=== PATIENT | male | born 1965 | race Caucasian/White ===

== ENCOUNTER 2019-08-15 12:24 | Inpatient (IN) | payer OTHER ==
[2019-08-15 14:19] VITALS: BMI 23.1
--- NOTE | 2019-08-15 18:00 | HP ---
CIWA Score Nausea/Vomitin Muscle Tremors: 2 Anxiety: 4-Mod. Anxious/Guarded Agitation: 4-Moderately Restless Paroxysmal Sweats: 2 Orientation: 0-Oriented Tacttile Disturbances: 0-None Auditory Disturbances: 0-None Visual Disturbances: 0-None Headache: 0-None Present CIWA-Ar Total Score: 14 - Admission Criteria OASAS Guidelines: Admission for Medically Managed Detox: Requires at least one of the followin. CIWA greater than 12 2. Seizures within the past 24 hours 3. Delirium tremens within the past 24 hours 4. Hallucinations within the past 24 hours 5. Acute intervention needed for co occurring medical disorder 6. Acute intervention needed for co occurring psychiatric disorder 7. Severe withdrawal that cannot be handled at a lower level of care (continued vomiting, continued diarrhea, abnormal vital signs) requiring intravenous medication and/or fluids 8. Admission ROS S - HPI Allergies/Adverse Reactions: Allergies Allergy/AdvReac Type Severity Reaction Status Date / Time No Known Allergies Allergy Verified 08/15/19 14:06 History of Present Illness: pt here requesting detox from etoh use , reports 2 pints/day , 12-18 beers/ day , starts drinking in the morning , latest use today , started 17 mo ago 2/ 2 family issues. heroin : relapsed 17 mo ago, latest use 1 week ago , was started on Suboxone yesterday . denies IV use currently used IV in the 1979's and [id number] cocaine : 1 gr q 2 days denies iv use cannabis : 1/8 every 3 days tobacco : 1 ppd pmhx :DM , denies Hep C / HIV shx : unemployed, lives alone , denies legal issues This report was requested by: Debi Quarles | Reference #: [id number] Others' Prescriptions Patient Name: Neil Hankins Date: 1965 Address: [address] [place] [address] Sex: Male Rx Written Rx Dispensed Drug Quantity Days Supply Prescriber Name 08/14/2019 08/14/2019 buprenorphine-naloxone 8-2 mg sl film 24 8 Lexii Choi (PODIATRY PROFESSOR) 07/24/2019 07/24/2019 zolpidem tartrate 10 mg tablet 28 28 Salop , Shanyq, G 07/24/2019 07/24/2019 clonazepam 1 mg tablet 28 28 Salop, Shanyq , G 06/25/2019 06/25/2019 zolpidem tartrate 10 mg tablet 28 28 RadhaKevon (PODIATRY PROFESSOR) 06/25/2019 06/25/2019 clonazepam 1 mg tablet 28 28 [facility] Kevon Rodriguez (PODIATRY PROFESSOR) 04/23/2019 04/23/2019 [facility]pid[facility] tartrate 10 [facility] tablet [facility] 04/23/2019 04/23/2019 [facility] 1 mg tablet [facility] 02/11/2019 02/19/2019 zolpidem tartrate 10 mg tablet 28 28 Sascha Martinez MD 02/11/2019 02/11/2019 clonazepam 1 mg tablet 28 28 Sascha Martinez MD 01/16/2019 01/20/2019 zolpidem tartrate 10 mg tablet 30 30 RadhaKevon (PODIATRY PROFESSOR) 01/16/2019 01/17/2019 clonazepam 0.5 mg tablet 28 [facility] 12/20/2018 12/20/2018 zolpidem tartrate 10 mg tablet 30 30 TigenovahidKevon (PODIATRY PROFESSOR) 11/21/2018 11/21/2018 zolpidem tartrate 10 mg tablet 30 30 Sascha Martinez MD 10/22/2018 10/22/2018 zolpidem tartrate 10 mg tablet 30 30 Sascha Martinez MD 09/19/2018 09/19/2018 zolpidem tartrate 10 mg tablet 30 30 Sascha Martinez MD Patient Name: Neil Hankins Jr Date: 1965 Address: [address] [place] [address] Sex: Male Rx Written Rx Dispensed Drug Quantity Days Supply Prescriber Name 03/28/2019 03/28/2019 oxycodone-acetaminophen 5-325 mg tab 56 7 Leobardo Villa 02/20/2019 02/20/2019 oxycodone-acetaminophen 5-325 mg tab 56 8 Leobardo Villa 02/06/2019 02/06/2019 oxycodone-acetaminophen 5-325 mg tab 21 7 Leobardo Villa 12/04/2018 12/04/2018 oxycodone-acetaminophen 10-325 mg tab 45 15 Leobardo Villa 11/13/2018 11/13/2018 oxycodone-acetaminophen 10-325 mg tab 45 15 Leobardo Villa 11/06/2018 11/06/2018 oxycodone-acetaminophen 5-325 mg tab 21 7 Leobardo Villa 09/18/2018 09/18/2018 oxycodone-acetaminophen 10-325 mg tab 45 15 Leobardo Villa 09/04/2018 09/04/2018 oxycodone-acetaminophen 10-325 mg tab 21 7 Leobardo Villa Exam Limitations: Clinical Condition - Ebola screening Have you traveled outside of the country in the last 21 days: No (N) Have you had contact with anyone from an Ebola affected area: No Do you have a fever: No - Review of Systems Constitutional: See HPI, Loss of Appetite EENT: reports: Other (reading glasses) Respiratory: reports: No Symptoms reported Cardiac: reports: No Symptoms Reported GI: reports: See HPI, Constipated, Nausea, Poor Appetite : reports: No Symptoms Reported Musculoskeletal: reports: Back Pain (chronic - used to have rx for Perocet " it was for my SSI "), Joint Pain (jenifer knees , feet chronic pain) Integumentary: reports: No Symptoms Reported Neuro: reports: Numbness (DM neuropathy), Unsteady Gait (using cane) Endocrine: reports: See HPI Psychiatric: reports: Orientated x3, Agitated, Anxious Patient History - Smoking Cessation Smoking history: Current every day smoker Have you smoked in the past 12 months: Yes Hx Chewing Tobacco Use: No Initiated information on smoking cessation: Yes 'Breaking Loose' booklet given: 08/15/19 - Substances abused Heroin Substance route: Inhalation Frequency: Daily Amount used: 2BUNDLES Age of first use: 20 Date of last use: 08/08/19 Crack Substance route: Smoking Frequency: Daily Amount used: 2BUNDLES Age of first use: 22 Date of last use: 08/14/19 Alcohol Substance route: Oral Frequency: Daily Amount used: BEERS- 12PCK/ BACARDY- 1L Age of first use: 10 Date of last use: 08/15/19 Admission Physical Exam BHS - Vital Signs Vital Signs: Vital Signs - 24 hr 08/15/19 14:11 Temperature 97.9 F Pulse Rate 123 H Respiratory 20 Rate Blood Pressure 163/96 - Physical General Appearance: Yes: Mild Distress, Anxious HEENTM: Yes: EOMI, Hearing grossly Normal, Normocephalic, Normal Voice Respiratory: Yes: Chest Non-Tender, Lungs Clear, Normal Breath Sounds, No Respiratory Distress, No Accessory Muscle Use Neck: Yes: No masses,lesions,Nodules, Trachea in good position Cardiology: Yes: Regular Rhythm, Regular Rate, S1, S2, Tachycardia Abdominal: Yes: Non Tender, Soft Musculoskeletal: Yes: Back pain Extremities: Yes: Normal Range of Motion, Non-Tender, Tremors Neurological: Yes: Fully Oriented, Alert, Motor Strength 5/5 Integumentary: Yes: Warm, Track Mendez - Diagnostic (1) Opioid dependence on agonist therapy Current Visit: Yes Status: Acute (2) Alcohol use disorder Current Visit: Yes Status: Chronic (3) Nicotine dependence Current Visit: Yes Status: Chronic Qualifiers: Nicotine product type: cigarettes (4) Cocaine use Current Visit: Yes Status: Chronic (5) Cannabis use disorder, mild, abuse Current Visit: Yes Status: Chronic Breathalyzer - Breathalyzer Breathalyzer: 0 Urine Drug Screen - Test Device Lot number: [id number] Expiration date: 04/06/21 - Control Is test valid?: Yes - Results Drug screen NEGATIVE: No Urine drug screen results: THC-Marijuana, KAN-Cocaine, BUP-Suboxone Inpatient Rehab Admission - Rehab Decision to Admit Inpatient rehab admission?: No
[2019-08-15] MEDS ORDERED: IBUPROFEN 400 MG TABLET (FP) PO PRN (18:09)
[2019-08-15] MEDS ORDERED: MAG HYDROX/AL HYDROX/SIMETH 30 ML UNIT-DOSE CUP PO PRN (18:09)
[2019-08-15] MEDS ORDERED: ACETAMINOPHEN 325 MG TABLET (FP) PO PRN ×2 (18:09)
[2019-08-15] MEDS ORDERED: BISMUTH SUBSALICYLATE 524 MG/30 ML UD PO PRN (18:09)
[2019-08-15] MEDS ORDERED: hydrOXYzine PAMOATE 25 MG CAPSULE (FP) PO PRN (18:09)
[2019-08-15] MEDS ORDERED: METHOCARBAMOL 500 MG TABLET PO PRN (18:09)
[2019-08-15] MEDS ORDERED: MENTHOL/PHENOL 1 EACH UD MM PRN (18:09)
[2019-08-15] MEDS ORDERED: MAGNESIUM CITRATE 300 ML BOTTLE PO PRN (18:09)
[2019-08-15] MEDS ORDERED: MAGNESIUM HYDROX 2400MG/30ML ORAL SUSPENSION 30 ML CUP PO PRN (18:09)
[2019-08-15] MEDS ORDERED: chlordiazePOXIDE HCL 25 MG CAPSULE PO PRN (18:10)
[2019-08-15] MEDS ORDERED: chlordiazePOXIDE HCL 25 MG CAPSULE PO ONE (19:05)
[2019-08-15] MEDS ORDERED: BUPRENORPHINE/NALOXONE 8 MG/2 MG FILM PACKET SL ONE (19:11)
[2019-08-15] MEDS: INSULIN SLIDING SCALE (NOVOLOG) 1 VIAL SQ SCH ×2 (19:31→22:14)
[2019-08-15] MEDS: ASPIRIN 81 MG CHEWABLE TABLETS PO SCH (19:31)
[2019-08-15] MEDS: metFORMIN HCL 500 MG TABLET (FP) PO SCH (19:31)
[2019-08-15] MEDS: chlordiazePOXIDE HCL 25 MG CAPSULE PO SCH (22:14)
[2019-08-15] MEDS: THIAMINE HCL 100 MG TABLET (FP) PO SCH (22:14)
[2019-08-15] MEDS: ATORVASTATIN CA 80 MG TABLET (FP) PO SCH (22:14)
[2019-08-15] MEDS: INSULIN (LEVEMIR) 100 UNITS/ML UNITS SQ SCH (22:17)
[2019-08-16] MEDS: chlordiazePOXIDE HCL 25 MG CAPSULE PO SCH ×4 (05:45→22:28)
[2019-08-16] MEDS: INSULIN SLIDING SCALE (NOVOLOG) 1 VIAL SQ SCH ×4 (06:49→22:49)
[2019-08-16] MEDS: glipiZIDE-XL 5 MG TAB.ER.24 PO SCH (07:06)
[2019-08-16] MEDS: metFORMIN HCL 500 MG TABLET (FP) PO SCH (07:06)
[2019-08-16 10:57] LABS: ALBUMIN 3.6 g/dl (3.4-5.0); BILIRUBIN,TOTAL 0.4 mg/dL (0.2-1); BLOOD UREA NITROGEN 19.4 mg/dL (7-18); CREATININE 0.8 mg/dL (0.55-1.3); POTASSIUM 3.8 mmol/L (3.5-5.1); TOT PROT 6.9 g/dl (6.4-8.2)
[2019-08-16] MEDS: ASPIRIN 81 MG CHEWABLE TABLETS PO SCH (10:58)
[2019-08-16] MEDS: PRENATAL VITAMINS W/ FOLIC ACID TABLET (FP) PO SCH (10:58)
[2019-08-16] MEDS: BUPRENORPHINE/NALOXONE 8 MG/2 MG FILM PACKET SL SCH (10:59)
[2019-08-16 11:12] LABS: HEMATOCRIT 40.9 % (35.4-49); HEMOGLOBIN 13.7 GM/dL (11.7-16.9); MCH 30.4 pg (25.7-33.7); MCHC 33.6 g/dl (32.0-35.9); MEAN CELL VOLUME 90.4 fl (80-96); MEAN PLT VOLUME 8.3 fl (7.5-11.1); PLATELET COUNT 185 K/MM3 (134-434); RBC 4.52 M/mm3 (4.00-5.60); RDW 13.6 % (11.9-15.9); WHITE BLOOD COUNT 9.6 K/mm3 (4.0-10.0)
--- NOTE | 2019-08-16 11:43 | CONSULT ---
[facility] Psychiatric Consult - Data Date of interview: 08/16/19 Admission source: [facility] Identifying data: First admission to [facility] for this 54 y/o male self-referred for detoxification (TON issues : alcohol, cannabis, nicotine, cocaine). Interviewed at [address] [place] [address]. Patient is , father of one, domiciled , unemployed and supported on SSI benefits. Substance Abuse History: Discussed with the patient. Details in current [facility] report as follows : Smoking history: Current every day smoker. Have you smoked in the past 12 months: Yes. Hx Chewing Tobacco Use: No. Initiated information on smoking cessation: Yes. 'Breaking Loose' booklet given: 08/15/19. - Substances abused. Heroin. Substance route: Inhalation. Frequency: Daily. Amount used: 2BUNDLES. Age of first use: 20. Date of last use: 08/08/19. * * Crack. Substance route: Smoking. Frequency: Daily. Amount used: 2BUNDLES. Age of first use: 22. Date of last use: 08/14/19. Alcohol. Substance route : Oral. Frequency: Daily. Amount used: BEERS- 12PCK/ BACARDY- 1L. Age of first use: 10. Date of last use: 08/15/19 Medical History: Medical profile is consistent with diabetes mellitus, hypercholesterolemia, chronic lumbar pain and history of surgeries (right inguinal herniorraphy + left wrist surgery). Psychiatric History: Patient denies history of psychiatric hospitalizations. He indicates that he has been diagnosed with " bipolar disorder and schizophrenia ". Mr Hankins sees a psychiatrist at [facility] in the [place] for his OPD care. Medicated with prozac + zolpidem + aripriprazole. Currently on suboxone maintenance. No reported history of suicide attempts. Physical/Sexual Abuse/Trauma History: None reported. Additional Comment: Urine drug screen results: THC-Marijuana, AKN-Cocaine, BUP- Suboxone. Noted. Mental Status Exam - Mental Status Exam Alert and Oriented to: Time, Place, Person Cognitive Function: Good Patient Appearance: Well Groomed Mood: Hopeful Affect: Appropriate, Normal Range Patient Behavior: Fatigued, Appropriate, Cooperative Speech Pattern: Clear, Appropriate Thought Process: Intact, Goal Oriented Thought Disorder: Not Present Hallucinations: Denies Suicidal Ideation: Denies Homicidal Ideation: Denies Insight/Judgement: Poor Sleep: Poorly, Difficulty falling asleep Appetite: Good Muscle strength/Tone: Normal Gait/Station: Normal Psychiatric Findings - Problem List ([place] 1, 2,3) (1) Alcohol use disorder Current Visit: Yes Status: Chronic (2) Opioid dependence on agonist therapy Current Visit: Yes Status: Chronic (3) Cannabis use disorder, mild, abuse Current Visit: Yes Status: Chronic (4) Cocaine use Current Visit: Yes Status: Chronic (5) Nicotine dependence Current Visit: Yes Status: Chronic Qualifiers: Nicotine product type: cigarettes (6) Substance induced mood disorder Current Visit: Yes Status: Chronic (7) History of schizoaffective disorder Current Visit: Yes Status: Chronic (8) Insomnia Current Visit: Yes Status: Chronic - Initial Treatment Plan Initial Treatment Plan: Psychoeducation. Sleep hygiene. Detoxification. AA/NA meetings. MAT services discussed in this session. Groups. Medications resumed as : prozac 10 mg po daily + abilify 5 mg po daily. Insomnia is addressed with melatonin at bedtime. Side effects/benefits of each formulation are discussed with patient. Gave verbal consent to this plan of care. Observation.
[2019-08-16] MEDS: FLUoxetine HCL 10 MG TABLET PO SCH (13:09)
[2019-08-16] MEDS: ARIPiprazole 5 MG TABLET (FP) PO SCH (13:10)
--- NOTE | 2019-08-16 13:36 | PN ---
S CIWA - CIWA Score Nausea/Vomitin-No Nausea/No Vomiting Muscle Tremors: 2 Anxiety: 3 Agitation: 0-Normal Activity Paroxysmal Sweats: 3 Orientation: 0-Oriented Tacttile Disturbances: 0-None Auditory Disturbances: 0-None Visual Disturbances: 0-None Headache: 1-Very Mild CIWA-Ar Total Score: 9 S Progress Note (SOAP) Subjective: c/o headache, anxiety, and sweats. Objective: 08/16/19 13:35 Vital Signs 08/16/19 08/16/19 08/16/19 06:16 09:38 11:07 Temperature 97 F L 96.5 F L Pulse Rate 76 76 85 Respiratory 18 18 Rate Blood Pressure 93/60 95/55 L 112/64 08/16/19 13:19 Temperature 97.2 F L Pulse Rate 83 Respiratory 18 Rate Blood Pressure 102/62 Lab Results WBC 9.6 K/mm3 (4.0-10.0) 08/16/19 07:50 RBC 4.52 M/mm3 (4.00-5.60) 08/16/19 07:50 Hgb 13.7 GM/dL (11.7-16.9) 08/16/19 07:50 Hct 40.9 % (35.4-49) 08/16/19 07:50 MCV 90.4 fl (80-96) 08/16/19 07:50 MCHC 33.6 g/dl (32.0-35.9) 08/16/19 07:50 RDW 13.6 % (11.9-15.9) 08/16/19 07:50 Plt Count 185 K/MM3 (134-434) 08/16/19 07:50 Sodium 142 mmol/L (136-145) 08/16/19 07:50 Potassium 3.8 mmol/L (3.5-5.1) 08/16/19 07:50 Chloride 102 mmol/L (98-107) 08/16/19 07:50 Carbon Dioxide 34 mmol/L (21-32) H 08/16/19 07:50 Anion Gap 6 MMOL/L (8-16) L 08/16/19 07:50 BUN 19.4 mg/dL (7-18) H 08/16/19 07:50 Creatinine 0.8 mg/dL (0.55-1.3) 08/16/19 07:50 Random Glucose 139 mg/dL (74-106) H 08/16/19 07:50 Calcium 9.0 mg/dL (8.5-10.1) 08/16/19 07:50 Labs noted. Assessment: 08/16/19 13:35 AOX3, in no acute respiratory distress. Full rom, ambulating in the unit. Withdrawal symptoms. Plan: continue detox.
[2019-08-16] MEDS: THIAMINE HCL 100 MG TABLET (FP) PO SCH (22:28)
[2019-08-16] MEDS: ATORVASTATIN CA 80 MG TABLET (FP) PO SCH (22:28)
[2019-08-16] MEDS: MELATONIN 5 MG TABLETS PO PRN (22:29)
[2019-08-16] MEDS: INSULIN (LEVEMIR) 100 UNITS/ML UNITS SQ SCH (22:49)
[2019-08-17] MEDS: chlordiazePOXIDE HCL 25 MG CAPSULE PO SCH ×4 (05:16→22:14)
[2019-08-17] MEDS: metFORMIN HCL 500 MG TABLET (FP) PO SCH (06:33)
[2019-08-17] MEDS: glipiZIDE-XL 5 MG TAB.ER.24 PO SCH (06:34)
[2019-08-17] MEDS: INSULIN SLIDING SCALE (NOVOLOG) 1 VIAL SQ SCH ×4 (06:34→22:16)
[2019-08-17] MEDS: BUPRENORPHINE/NALOXONE 8 MG/2 MG FILM PACKET SL SCH (10:20)
[2019-08-17] MEDS: ASPIRIN 81 MG CHEWABLE TABLETS PO SCH (10:20)
[2019-08-17] MEDS: PRENATAL VITAMINS W/ FOLIC ACID TABLET (FP) PO SCH (10:20)
[2019-08-17] MEDS: FLUoxetine HCL 10 MG TABLET PO SCH (10:21)
[2019-08-17] MEDS: ARIPiprazole 5 MG TABLET (FP) PO SCH (10:21)
--- NOTE | 2019-08-17 14:08 | PN ---
S CIWA - CIWA Score Nausea/Vomitin-No Nausea/No Vomiting Muscle Tremors: 2 Anxiety: 2 Agitation: 2 Paroxysmal Sweats: No Perspiration Orientation: 0-Oriented Tacttile Disturbances: 0-None Auditory Disturbances: 0-None Visual Disturbances: 0-None Headache: 0-None Present CIWA-Ar Total Score: 6 BHS Progress Note (SOAP) Subjective: 54 years old male admitted on 08/15/19 for alcohol withdrawal sx management treated with librium detox regimen taking suboxone 8-2mg po tid last filled 8 days 08/14/19 begin suboxone 8-2mg po daily patient may return to suboxone provider Objective: 08/17/19 14:06 Vital Signs Temperature 99.0 F 08/17/19 13:12 Pulse Rate 73 08/17/19 13:12 Respiratory Rate 18 08/17/19 13:12 Blood Pressure 93/60 08/17/19 13:12 O2 Sat by Pulse Oximetry (%) Laboratory Last Values WBC 9.6 K/mm3 (4.0-10.0) 08/16/19 07:50 RBC 4.52 M/mm3 (4.00-5.60) 08/16/19 07:50 Hgb 13.7 GM/dL (11.7-16.9) 08/16/19 07:50 Hct 40.9 % (35.4-49) 08/16/19 07:50 MCV 90.4 fl (80-96) 08/16/19 07:50 MCH 30.4 pg (25.7-33.7) 08/16/19 07:50 MCHC 33.6 g/dl (32.0-35.9) 08/16/19 07:50 RDW 13.6 % (11.9-15.9) 08/16/19 07:50 Plt Count 185 K/MM3 (134-434) 08/16/19 07:50 MPV 8.3 fl (7.5-11.1) 08/16/19 07:50 Sodium 142 mmol/L (136-145) 08/16/19 07:50 Potassium 3.8 mmol/L (3.5-5.1) 08/16/19 07:50 Chloride 102 mmol/L (98-107) 08/16/19 07:50 Carbon Dioxide 34 mmol/L (21-32) H 08/16/19 07:50 Anion Gap 6 MMOL/L (8-16) L 08/16/19 07:50 BUN 19.4 mg/dL (7-18) H 08/16/19 07:50 Creatinine 0.8 mg/dL (0.55-1.3) 08/16/19 07:50 Est GFR (CKD-EPI)AfAm 115.74 08/16/19 07:50 Est GFR (CKD-EPI)NonAf 99.86 08/16/19 07:50 POC Glucometer 126 UNITS (80-120) 08/17/19 12:01 Random Glucose 139 mg/dL (74-106) H 08/16/19 07:50 Calcium 9.0 mg/dL (8.5-10.1) 08/16/19 07:50 Total Bilirubin 0.4 mg/dL (0.2-1) 08/16/19 07:50 AST 14 U/L (15-37) L 08/16/19 07:50 ALT 14 U/L (13-61) 08/16/19 07:50 Alkaline Phosphatase 72 U/L (45-117) 08/16/19 07:50 Total Protein 6.9 g/dl (6.4-8.2) 08/16/19 07:50 Albumin 3.6 g/dl (3.4-5.0) 08/16/19 07:50 RPR Titer Nonreactive (NONREACTIVE) 08/16/19 07:50 lab noted fasting glucose Assessment: 08/17/19 14:07 alcohol withdrawal sx Plan: continue librium detox regimen
[2019-08-17] MEDS: THIAMINE HCL 100 MG TABLET (FP) PO SCH (22:14)
[2019-08-17] MEDS: ATORVASTATIN CA 80 MG TABLET (FP) PO SCH (22:14)
[2019-08-17] MEDS: INSULIN (LEVEMIR) 100 UNITS/ML UNITS SQ SCH (22:17)
[2019-08-18] MEDS ORDERED: chlordiazePOXIDE HCL 10 MG CAPSULE PO PRN
[2019-08-18] MEDS: chlordiazePOXIDE HCL 10 MG CAPSULE PO SCH ×4 (05:35→22:29)
[2019-08-18] MEDS: metFORMIN HCL 500 MG TABLET (FP) PO SCH (06:30)
[2019-08-18] MEDS: glipiZIDE-XL 5 MG TAB.ER.24 PO SCH (06:30)
[2019-08-18] MEDS: INSULIN SLIDING SCALE (NOVOLOG) 1 VIAL SQ SCH ×4 (06:31→22:27)
[2019-08-18] MEDS: PRENATAL VITAMINS W/ FOLIC ACID TABLET (FP) PO SCH (10:11)
[2019-08-18] MEDS: ASPIRIN 81 MG CHEWABLE TABLETS PO SCH (10:11)
[2019-08-18] MEDS: BUPRENORPHINE/NALOXONE 8 MG/2 MG FILM PACKET SL SCH (10:11)
[2019-08-18] MEDS: ARIPiprazole 5 MG TABLET (FP) PO SCH (10:15)
[2019-08-18] MEDS: FLUoxetine HCL 10 MG TABLET PO SCH (10:15)
--- NOTE | 2019-08-18 13:09 | PN ---
[facility] Progress Note Note: Psychiatry Attending's note (follow-up) : Patient seen. Reason : auditory hallucinations. Reported by Counselor Yoshi Tomlinson. Mr Hankins is examined by copywriter. " I don't hear voices. This happened a long time ago." Patient states that he is interested in rehabilitation at [facility]. Feels fine. Adherent to medications. Benign hospital course. Unremarkable mental status.
--- NOTE | 2019-08-18 14:35 | PN ---
[facility] CIWA - CIWA Score Nausea/Vomitin-No Nausea/No Vomiting Muscle Tremors: 1-None Visible, but [place] Anxiety: 1-Mildly Anxious Agitation: 1-Slight > Activity Paroxysmal Sweats: No Perspiration Orientation: 0-Oriented Tacttile Disturbances: 0-None Auditory Disturbances: 0-None Visual Disturbances: 0-None Headache: 0-None Present CIWA-Ar Total Score: 3 S Progress Note (SOAP) Subjective: 54 years old male admitted on 08/15/19 for alcohol withdrawal sx management treated with librium detox regimen patient tolerated librium well ate breakfast ambulating on hallway encourage the patient to attend group and meeting Objective: 08/18/19 14:36 Laboratory Last Values WBC 9.6 K/mm3 (4.0-10.0) 08/16/19 07:50 RBC 4.52 M/mm3 (4.00-5.60) 08/16/19 07:50 Hgb 13.7 GM/dL (11.7-16.9) 08/16/19 07:50 Hct 40.9 % (35.4-49) 08/16/19 07:50 MCV 90.4 fl (80-96) 08/16/19 07:50 MCH 30.4 pg (25.7-33.7) 08/16/19 07:50 MCHC 33.6 g/dl (32.0-35.9) 08/16/19 07:50 RDW 13.6 % (11.9-15.9) 08/16/19 07:50 Plt Count 185 K/MM3 (134-434) 08/16/19 07:50 MPV 8.3 fl (7.5-11.1) 08/16/19 07:50 Sodium 142 mmol/L (136-145) 08/16/19 07:50 Potassium 3.8 mmol/L (3.5-5.1) 08/16/19 07:50 Chloride 102 mmol/L (98-107) 08/16/19 07:50 Carbon Dioxide 34 mmol/L (21-32) H 08/16/19 07:50 Anion Gap 6 MMOL/L (8-16) L 08/16/19 07:50 BUN 19.4 mg/dL (7-18) H 08/16/19 07:50 Creatinine 0.8 mg/dL (0.55-1.3) 08/16/19 07:50 Est GFR (CKD-EPI)AfAm 115.74 08/16/19 07:50 Est GFR (CKD-EPI)NonAf 99.86 08/16/19 07:50 POC Glucometer 156 UNITS (80-120) 08/18/19 11:56 Random Glucose 139 mg/dL (74-106) H 08/16/19 07:50 Fasting Glucose 149 mg/dL (74-106) H 08/18/19 07:50 Calcium 9.0 mg/dL (8.5-10.1) 08/16/19 07:50 Total Bilirubin 0.4 mg/dL (0.2-1) 08/16/19 07:50 AST 14 U/L (15-37) L 08/16/19 07:50 ALT 14 U/L (13-61) 08/16/19 07:50 Alkaline Phosphatase 72 U/L (45-117) 08/16/19 07:50 Total Protein 6.9 g/dl (6.4-8.2) 08/16/19 07:50 Albumin 3.6 g/dl (3.4-5.0) 08/16/19 07:50 RPR Titer Nonreactive (NONREACTIVE) 08/16/19 07:50 lab noted Assessment: 08/18/19 14:37 alcohol withdrawal sx Plan: continue librium detox regimen
[2019-08-18] MEDS: INSULIN (LEVEMIR) 100 UNITS/ML UNITS SQ SCH (22:27)
[2019-08-18] MEDS: ATORVASTATIN CA 80 MG TABLET (FP) PO SCH (22:29)
[2019-08-18] MEDS: THIAMINE HCL 100 MG TABLET (FP) PO SCH (22:29)
[2019-08-19] MEDS: chlordiazePOXIDE HCL 10 MG CAPSULE PO SCH ×2 (05:17→17:28)
[2019-08-19] MEDS: metFORMIN HCL 500 MG TABLET (FP) PO SCH (06:04)
[2019-08-19] MEDS: glipiZIDE-XL 5 MG TAB.ER.24 PO SCH (06:05)
[2019-08-19] MEDS: INSULIN SLIDING SCALE (NOVOLOG) 1 VIAL SQ SCH ×4 (06:14→22:16)
[2019-08-19] MEDS: ARIPiprazole 5 MG TABLET (FP) PO SCH (10:03)
[2019-08-19] MEDS: PRENATAL VITAMINS W/ FOLIC ACID TABLET (FP) PO SCH (10:03)
[2019-08-19] MEDS: BUPRENORPHINE/NALOXONE 8 MG/2 MG FILM PACKET SL SCH (10:03)
[2019-08-19] MEDS: FLUoxetine HCL 10 MG TABLET PO SCH (10:04)
[2019-08-19] MEDS: ASPIRIN 81 MG CHEWABLE TABLETS PO SCH (10:05)
--- NOTE | 2019-08-19 12:38 | PN ---
[facility] CIWA - CIWA Score Nausea/Vomitin-No Nausea/No Vomiting Muscle Tremors: None Anxiety: 1-Mildly Anxious Agitation: 0-Normal Activity Paroxysmal Sweats: No Perspiration Orientation: 0-Oriented Tacttile Disturbances: 0-None Auditory Disturbances: 0-None Visual Disturbances: 0-None Headache: 0-None Present CIWA-Ar Total Score: 1 S Progress Note (SOAP) Subjective: 54 years old male admitted on 08/15/19 for alcohol withdrawal sx management treated with librium detox regimen c/o chronic back pain treated with bengay at home bengay ordered Objective: 08/19/19 12:37 Vital Signs Temperature 98 F 08/19/19 09:03 Pulse Rate 81 08/19/19 09:03 Respiratory Rate 18 08/19/19 09:03 Blood Pressure 117/79 08/19/19 09:03 O2 Sat by Pulse Oximetry (%) Laboratory Last Values WBC 9.6 K/mm3 (4.0-10.0) 08/16/19 07:50 RBC 4.52 M/mm3 (4.00-5.60) 08/16/19 07:50 Hgb 13.7 GM/dL (11.7-16.9) 08/16/19 07:50 Hct 40.9 % (35.4-49) 08/16/19 07:50 MCV 90.4 fl (80-96) 08/16/19 07:50 MCH 30.4 pg (25.7-33.7) 08/16/19 07:50 MCHC 33.6 g/dl (32.0-35.9) 08/16/19 07:50 RDW 13.6 % (11.9-15.9) 08/16/19 07:50 Plt Count 185 K/MM3 (134-434) 08/16/19 07:50 MPV 8.3 fl (7.5-11.1) 08/16/19 07:50 Sodium 142 mmol/L (136-145) 08/16/19 07:50 Potassium 3.8 mmol/L (3.5-5.1) 08/16/19 07:50 Chloride 102 mmol/L (98-107) 08/16/19 07:50 Carbon Dioxide 34 mmol/L (21-32) H 08/16/19 07:50 Anion Gap 6 MMOL/L (8-16) L 08/16/19 07:50 BUN 19.4 mg/dL (7-18) H 08/16/19 07:50 Creatinine 0.8 mg/dL (0.55-1.3) 08/16/19 07:50 Est GFR (CKD-EPI)AfAm 115.74 08/16/19 07:50 Est GFR (CKD-EPI)NonAf 99.86 08/16/19 07:50 POC Glucometer 146 UNITS (80-120) 08/19/19 11:51 Random Glucose 139 mg/dL (74-106) H 08/16/19 07:50 Fasting Glucose 149 mg/dL (74-106) H 08/18/19 07:50 Calcium 9.0 mg/dL (8.5-10.1) 08/16/19 07:50 Total Bilirubin 0.4 mg/dL (0.2-1) 08/16/19 07:50 AST 14 U/L (15-37) L 08/16/19 07:50 ALT 14 U/L (13-61) 08/16/19 07:50 Alkaline Phosphatase 72 U/L (45-117) 08/16/19 07:50 Total Protein 6.9 g/dl (6.4-8.2) 08/16/19 07:50 Albumin 3.6 g/dl (3.4-5.0) 08/16/19 07:50 RPR Titer Nonreactive (NONREACTIVE) 08/16/19 07:50 lab noted Assessment: 08/19/19 12:38 alcohol withdrawal sx management Plan: continue librium detox regimen
[2019-08-19] MEDS: METHYL SALICYLATE/MENTHOL OINT 30 GM TUBE TP SCH ×2 (14:06→22:16)
[2019-08-19] MEDS: THIAMINE HCL 100 MG TABLET (FP) PO SCH (21:37)
[2019-08-19] MEDS: INSULIN (LEVEMIR) 100 UNITS/ML UNITS SQ SCH (21:37)
[2019-08-19] MEDS: MELATONIN 5 MG TABLETS PO PRN (21:37)
[2019-08-19] MEDS: ATORVASTATIN CA 80 MG TABLET (FP) PO SCH (21:37)
[2019-08-20] MEDS ORDERED: chlordiazePOXIDE HCL 10 MG CAPSULE PO ONE (05:00)
[2019-08-20] MEDS: metFORMIN HCL 500 MG TABLET (FP) PO SCH (06:16)
[2019-08-20] MEDS: INSULIN SLIDING SCALE (NOVOLOG) 1 VIAL SQ SCH ×2 (06:16→12:10)
[2019-08-20] MEDS: glipiZIDE-XL 5 MG TAB.ER.24 PO SCH (06:16)
[2019-08-20] MEDS: ASPIRIN 81 MG CHEWABLE TABLETS PO SCH (10:10)
[2019-08-20] MEDS: PRENATAL VITAMINS W/ FOLIC ACID TABLET (FP) PO SCH (10:10)
[2019-08-20] MEDS: METHYL SALICYLATE/MENTHOL OINT 30 GM TUBE TP SCH (10:10)
[2019-08-20] MEDS: BUPRENORPHINE/NALOXONE 8 MG/2 MG FILM PACKET SL SCH (10:11)
[2019-08-20] MEDS: ARIPiprazole 5 MG TABLET (FP) PO SCH (10:11)
[2019-08-20] MEDS: FLUoxetine HCL 10 MG TABLET PO SCH (10:12)
--- NOTE | 2019-08-20 13:14 | DS ---
[facility] Detox Discharge Summary Admission Date: 08/15/19 Discharge Date: 08/20/19 - History Present History: Alcohol Dependence Additional Comments: 54 years old male admitted on 08/15/19 for alcohol withdrawal sx management treated with librium detox regimen patient is alert oriented x 3 respiratory clear lung bilaterally on auscultation abdomen soft no rebound tenderness skin warm and dry - Physical Exam Results Vital Signs: Vital Signs Temperature 97.0 F L 08/20/19 09:10 Pulse Rate 83 08/20/19 09:10 Respiratory Rate 16 08/20/19 09:10 Blood Pressure 111/73 08/20/19 09:10 O2 Sat by Pulse Oximetry (%) Pertinent Admission Physical Exam Findings: alcohol withdrawal sx Laboratory Last Values WBC 9.6 K/mm3 (4.0-10.0) 08/16/19 07:50 RBC 4.52 M/mm3 (4.00-5.60) 08/16/19 07:50 Hgb 13.7 GM/dL (11.7-16.9) 08/16/19 07:50 Hct 40.9 % (35.4-49) 08/16/19 07:50 MCV 90.4 fl (80-96) 08/16/19 07:50 MCH 30.4 pg (25.7-33.7) 08/16/19 07:50 MCHC 33.6 g/dl (32.0-35.9) 08/16/19 07:50 RDW 13.6 % (11.9-15.9) 08/16/19 07:50 Plt Count 185 K/MM3 (134-434) 08/16/19 07:50 MPV 8.3 fl (7.5-11.1) 08/16/19 07:50 Sodium 142 mmol/L (136-145) 08/16/19 07:50 Potassium 3.8 mmol/L (3.5-5.1) 08/16/19 07:50 Chloride 102 mmol/L (98-107) 08/16/19 07:50 Carbon Dioxide 34 mmol/L (21-32) H 08/16/19 07:50 Anion Gap 6 MMOL/L (8-16) L 08/16/19 07:50 BUN 19.4 mg/dL (7-18) H 08/16/19 07:50 Creatinine 0.8 mg/dL (0.55-1.3) 08/16/19 07:50 Est GFR (CKD-EPI)AfAm 115.74 08/16/19 07:50 Est GFR (CKD-EPI)NonAf 99.86 08/16/19 07:50 POC Glucometer 146 UNITS (80-120) 08/20/19 11:59 Random Glucose 139 mg/dL (74-106) H 08/16/19 07:50 Fasting Glucose 149 mg/dL (74-106) H 08/18/19 07:50 Calcium 9.0 mg/dL (8.5-10.1) 08/16/19 07:50 Total Bilirubin 0.4 mg/dL (0.2-1) 08/16/19 07:50 AST 14 U/L (15-37) L 08/16/19 07:50 ALT 14 U/L (13-61) 08/16/19 07:50 Alkaline Phosphatase 72 U/L (45-117) 08/16/19 07:50 Total Protein 6.9 g/dl (6.4-8.2) 08/16/19 07:50 Albumin 3.6 g/dl (3.4-5.0) 08/16/19 07:50 RPR Titer Nonreactive (NONREACTIVE) 08/16/19 07:50 lab noted long history of diabetes - Treatment Hospital Course: Detox Protocol Followed, Detoxed Safely, Responded well, Discharged Condition Good, Rehab Referral Accepted Patient has Accepted [facility] - Medication Discharge Medications: Ambulatory Orders Aripiprazole [Abilify -] 5 mg PO DAILY 08/15/19 Aspirin [ASA -] 81 mg PO DAILY 08/15/19 Atorvastatin Ca [Lipitor] 80 mg PO HS 08/15/19 Buprenorphine/Naloxone [Suboxone 8Mg/2Mg Sl Film -] 1 each SL TID 08/15/19 Fluoxetine HCl [Prozac -] 10 mg PO DAILY 08/15/19 Gabapentin [Neurontin -] 100 mg PO BID 08/15/19 Glipizide [Glipizide ER] 5 mg PO DAILY 08/15/19 Insulin Glargine,Hum.rec.anlog [Basaglar Kwikpen U-100] 40 unit SQ DAILY Insulin NPH [Novolin N Vial -] 20 units SQ TID 08/15/19 Metformin HCl [Glucophage] 1,000 mg PO DAILY 08/15/19 Aripiprazole [Abilify -] 5 mg PO DAILY #30 tablet 08/18/19 Fluoxetine HCl [Prozac -] 10 mg PO DAILY #30 capsule 08/18/19 - Diagnosis (1) Alcohol use disorder Current Visit: Yes Status: Acute (2) Nicotine dependence Current Visit: Yes Status: Acute Qualifiers: Nicotine product type: cigarettes Substance use status: in withdrawal Qualified Code(s): F17.213 - Nicotine dependence, cigarettes, with withdrawal (3) Substance induced mood disorder Current Visit: Yes Status: Suspected - AMA Did Patient Leave Against Medical Advice: No CIWA Score - CIWA Score Nausea/Vomitin-No Nausea/No Vomiting Muscle Tremors: None Anxiety: 0-No Anxiety, at Ease Agitation: 0-Normal Activity Paroxysmal Sweats: No Perspiration Orientation: 0-Oriented Tacttile Disturbances: 0-None Auditory Disturbances: 0-None Visual Disturbances: 0-None Headache: 0-None Present CIWA-Ar Total Score: 0
[2019-08-20 13:48] VITALS: BP 105/72; PULSE 88; TEMP 97.1
== END 2019-08-20 14:50 | disposition other institution (70) | DRG 773 ==
LOC: EDBD → YASAS 12:24 → Y3N 18:57
PROVIDERS: ADMIT Allergy & Immunology; ATTEND Allergy & Immunology
PROC: HZ2ZZZZ Detoxification Services for Substance Abuse Treatment (ICD-10-PCS; principal; 2019-08-15)
DX: F10.230 Alcohol dependence with withdrawal, uncomplicated (principal); F11.20 Opioid dependence, uncomplicated; F12.10 Cannabis abuse, uncomplicated; F14.90 Cocaine use, unspecified, uncomplicated; F17.213 Nicotine dependence, cigarettes, with withdrawal; F19.24 Other psychoactive substance dependence with psychoactive substance-induced mood disorder; E11.9 Type 2 diabetes mellitus without complications; E78.00 Pure hypercholesterolemia, unspecified; M54.5 Low back pain; G89.29 Other chronic pain; G47.00 Insomnia, unspecified; R00.0 Tachycardia, unspecified; Z79.4 Long term (current) use of insulin; Z79.84 Long term (current) use of oral hypoglycemic drugs
CPT/HCPCS: 36415; 80053; 82947; 82962; 85027; 86593

== ENCOUNTER 2019-08-20 15:10 | Inpatient (IN) | payer OTHER ==
--- NOTE | 2019-08-20 13:26 | HP ---
[facility] Rehab Assess/Revision - Admission History Admitted to Rehab from: [facility] Date of Admission to Rehab: 08/20/19 - Findings Detox History & Physical reviewed: Yes Concur with findings: Yes Comments/Additional Findings: transferred from detox to rehab admission as per protocol Inpatient Rehab Admission - Rehab Decision to Admit Inpatient rehab admission?: Yes - Initial Determination Are CD services needed?: Yes Free of communicable disease: Yes Not in need of hospitalization: Yes - Rehab Admission Criteria Previous failed treatment: Yes Poor recovery environment: Yes Comorbidities: Yes Lacks judgement: Yes Patient is meeting Inpatient Rehab admission criteria:: Yes
[~2019-08-20 15:10] MED LIST: ACETAMINOPHEN 325 MG TABLET (FP) PO PRN; LOPERAMIDE HCL 2 MG CAPSULE PO PRN; MAG HYDROX/AL HYDROX/SIMETH 30 ML UNIT-DOSE CUP PO PRN; MAGNESIUM CITRATE 300 ML BOTTLE PO PRN; MAGNESIUM HYDROX 2400MG/30ML ORAL SUSPENSION 30 ML CUP PO PRN; MENTHOL/PHENOL 1 EACH UD MM PRN; P-EPHED 60MG/TRIPROLIDI 2.5MG TABLET PO PRN; guaiFENesin 200 MG/10 ML 10 ML UNIT-DOSE CUPS PO PRN
[2019-08-20] MEDS: INSULIN SLIDING SCALE (NOVOLOG) 1 VIAL SQ SCH ×2 (17:02→21:25)
[2019-08-20] MEDS: ATORVASTATIN CA 80 MG TABLET (FP) PO SCH (21:23)
[2019-08-20] MEDS: MELATONIN 5 MG TABLETS PO PRN (21:24)
[2019-08-20] MEDS: THIAMINE HCL 100 MG TABLET (FP) PO SCH (21:24)
[2019-08-20] MEDS: INSULIN (LEVEMIR) 100 UNITS/ML UNITS SQ SCH (21:25)
[2019-08-21] MEDS: INSULIN SLIDING SCALE (NOVOLOG) 1 VIAL SQ SCH ×2 (07:26→10:35)
[2019-08-21] MEDS: glipiZIDE-XL 5 MG TAB.ER.24 PO SCH (07:26)
[2019-08-21] MEDS: metFORMIN HCL 500 MG TABLET (FP) PO SCH (07:26)
[2019-08-21] MEDS: PRENATAL VITAMINS W/ FOLIC ACID TABLET (FP) PO SCH (10:18)
[2019-08-21] MEDS: ARIPiprazole 5 MG TABLET (FP) PO SCH (10:18)
[2019-08-21] MEDS: ASPIRIN 81 MG CHEWABLE TABLETS PO SCH (10:19)
[2019-08-21] MEDS: BUPRENORPHINE/NALOXONE 8 MG/2 MG FILM PACKET SL SCH (10:19)
[2019-08-21] MEDS: FLUoxetine HCL 10 MG CAPSULE (FP) PO SCH (10:19)
[2019-08-21] MEDS: INSULIN (LEVEMIR) 100 UNITS/ML UNITS SQ SCH (21:16)
[2019-08-21] MEDS: ATORVASTATIN CA 80 MG TABLET (FP) PO SCH (21:17)
[2019-08-21] MEDS: MELATONIN 5 MG TABLETS PO PRN (21:17)
[2019-08-21] MEDS: THIAMINE HCL 100 MG TABLET (FP) PO SCH (21:17)
[2019-08-22] MEDS: INSULIN SLIDING SCALE (NOVOLOG) 1 VIAL SQ SCH (06:39)
[2019-08-22] MEDS: glipiZIDE-XL 5 MG TAB.ER.24 PO SCH (07:30)
[2019-08-22] MEDS: metFORMIN HCL 500 MG TABLET (FP) PO SCH (07:30)
[2019-08-22] MEDS: FLUoxetine HCL 10 MG CAPSULE (FP) PO SCH (09:44)
[2019-08-22] MEDS: ASPIRIN 81 MG CHEWABLE TABLETS PO SCH (09:44)
[2019-08-22] MEDS: ARIPiprazole 5 MG TABLET (FP) PO SCH (09:44)
[2019-08-22] MEDS: PRENATAL VITAMINS W/ FOLIC ACID TABLET (FP) PO SCH (09:45)
[2019-08-22] MEDS: BUPRENORPHINE/NALOXONE 8 MG/2 MG FILM PACKET SL SCH (09:47)
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
[2019-08-22] MEDS ORDERED: hydrOXYzine PAMOATE 50 MG CAPSULE (FP) PO PRN (14:09)
[2019-08-22] MEDS: THIAMINE HCL 100 MG TABLET (FP) PO SCH (21:18)
[2019-08-22] MEDS: ATORVASTATIN CA 80 MG TABLET (FP) PO SCH (21:19)
[2019-08-22] MEDS: INSULIN (LEVEMIR) 100 UNITS/ML UNITS SQ SCH (21:21)
[2019-08-22] MEDS ORDERED: SUVOREXANT 10 MG TABLET PO PRN (22:00)
[2019-08-22] MEDS: METHYL SALICYLATE/MENTHOL OINT 30 GM TUBE TP SCH (22:24)
[2019-08-23] MEDS ORDERED: INSULIN (NOVOLOG) ASPART 100 UNITS/ML 10ML VIAL ONE (04:01)
[2019-08-23] MEDS ORDERED: PT OWN MED DRAWER 7, Y5N ONE ×2 (04:01→08:32)
[2019-08-23] MEDS: INSULIN SLIDING SCALE (NOVOLOG) 1 VIAL SQ SCH (06:44)
[2019-08-23] MEDS: metFORMIN HCL 500 MG TABLET (FP) PO SCH (06:44)
[2019-08-23] MEDS: glipiZIDE-XL 5 MG TAB.ER.24 PO SCH (06:44)
[2019-08-23] MEDS: ARIPiprazole 5 MG TABLET (FP) PO SCH (09:36)
[2019-08-23] MEDS: METHYL SALICYLATE/MENTHOL OINT 30 GM TUBE TP SCH ×2 (09:37→21:22)
[2019-08-23] MEDS: ASPIRIN 81 MG CHEWABLE TABLETS PO SCH (09:37)
[2019-08-23] MEDS: PRENATAL VITAMINS W/ FOLIC ACID TABLET (FP) PO SCH (09:37)
[2019-08-23] MEDS: BUPRENORPHINE/NALOXONE 8 MG/2 MG FILM PACKET SL SCH (09:37)
[2019-08-23] MEDS: FLUoxetine HCL 10 MG CAPSULE (FP) PO SCH (09:37)
[2019-08-23] MEDS: THIAMINE HCL 100 MG TABLET (FP) PO SCH (21:21)
[2019-08-23] MEDS: ATORVASTATIN CA 80 MG TABLET (FP) PO SCH (21:21)
[2019-08-23] MEDS: INSULIN (LEVEMIR) 100 UNITS/ML UNITS SQ SCH (21:24)
[2019-08-23] MEDS ORDERED: INSULIN (LEVEMIR) 100 UNITS/ML UNITS SQ ONE (21:55)
[2019-08-24] MEDS: INSULIN SLIDING SCALE (NOVOLOG) 1 VIAL SQ SCH (06:33)
[2019-08-24] MEDS: glipiZIDE-XL 5 MG TAB.ER.24 PO SCH (06:34)
[2019-08-24] MEDS: metFORMIN HCL 500 MG TABLET (FP) PO SCH (06:34)
[2019-08-24] MEDS: ASPIRIN 81 MG CHEWABLE TABLETS PO SCH (10:24)
[2019-08-24] MEDS: PRENATAL VITAMINS W/ FOLIC ACID TABLET (FP) PO SCH (10:24)
[2019-08-24] MEDS: ARIPiprazole 5 MG TABLET (FP) PO SCH (10:24)
[2019-08-24] MEDS: METHYL SALICYLATE/MENTHOL OINT 30 GM TUBE TP SCH ×2 (10:24→21:00)
[2019-08-24] MEDS: FLUoxetine HCL 10 MG CAPSULE (FP) PO SCH (10:24)
[2019-08-24] MEDS: BUPRENORPHINE/NALOXONE 8 MG/2 MG FILM PACKET SL SCH (10:24)
[2019-08-24] MEDS: ATORVASTATIN CA 80 MG TABLET (FP) PO SCH (21:00)
[2019-08-24] MEDS: INSULIN (LEVEMIR) 100 UNITS/ML UNITS SQ SCH (21:00)
[2019-08-24] MEDS: THIAMINE HCL 100 MG TABLET (FP) PO SCH (21:00)
[2019-08-25] MEDS: metFORMIN HCL 500 MG TABLET (FP) PO SCH (06:23)
[2019-08-25] MEDS: INSULIN SLIDING SCALE (NOVOLOG) 1 VIAL SQ SCH (06:23)
[2019-08-25] MEDS: glipiZIDE-XL 5 MG TAB.ER.24 PO SCH (06:23)
[2019-08-25] MEDS: ASPIRIN 81 MG CHEWABLE TABLETS PO SCH (09:48)
[2019-08-25] MEDS: BUPRENORPHINE/NALOXONE 8 MG/2 MG FILM PACKET SL SCH (09:48)
[2019-08-25] MEDS: PRENATAL VITAMINS W/ FOLIC ACID TABLET (FP) PO SCH (09:48)
[2019-08-25] MEDS: FLUoxetine HCL 10 MG CAPSULE (FP) PO SCH (09:48)
[2019-08-25] MEDS: ARIPiprazole 5 MG TABLET (FP) PO SCH (09:48)
[2019-08-25] MEDS: METHYL SALICYLATE/MENTHOL OINT 30 GM TUBE TP SCH ×2 (09:49→22:11)
[2019-08-25] MEDS: THIAMINE HCL 100 MG TABLET (FP) PO SCH (21:30)
[2019-08-25] MEDS: ATORVASTATIN CA 80 MG TABLET (FP) PO SCH (21:30)
[2019-08-25] MEDS: INSULIN (LEVEMIR) 100 UNITS/ML UNITS SQ SCH (21:34)
[2019-08-25] MEDS ORDERED: SUVOREXANT 10 MG TABLET PO PRN (22:00)
[2019-08-26] MEDS: glipiZIDE-XL 5 MG TAB.ER.24 PO SCH (06:15)
[2019-08-26] MEDS: metFORMIN HCL 500 MG TABLET (FP) PO SCH (06:15)
[2019-08-26] MEDS: INSULIN SLIDING SCALE (NOVOLOG) 1 VIAL SQ SCH (06:16)
--- NOTE | 2019-08-26 08:44 | DS ---
[facility] Rehab Discharge Summary - [facility] Rehab Discharge Summary Admission Date: 08/20/19 Discharge Date: 08/27/19 - History Present History: Alcohol dependence, Cocaine dependence Pertinent Past History: History of Present Illness: etoh use 2 pints/day , 12-18 beers/day , starts drinking in the morning, started 17 mo ago 2/2 family issues. heroin : relapsed 17 mo ago, started on Suboxone yesterday; denies IV use, but used IV in the and cocaine : 1 gr q 2 days denies iv use cannabis : 1/8 every 3 days tobacco : 1 ppd pmhx :DM , denies Hep C / HIV shx : unemployed, lives alone , denies legal issues - Discharge Physical Exam Vital Signs: Vital Signs Temperature 97.4 F L 08/26/19 07:07 Pulse Rate 82 08/26/19 07:07 Respiratory Rate 18 08/26/19 07:07 Blood Pressure 110/61 08/26/19 07:07 O2 Sat by Pulse Oximetry (%) Pertinent Admission Physical Exam Findings: - Physical General Appearance: No apparent distress HEENTM: Normocephalic, Respiratory: Lungs Clear, Neck: supple, Trachea in good position Cardiology: S1, S2, Abdominal: +BSNon Tender, Soft MSK: Full weight bearing, full ROM, steady gait. Neurological: CN 2-12 intact, Motor Strength 5/5 - Treatment Discharge Condition: Outpatient referral accepted (Patient will go to [facility]. Medically stable for discharge.) Hospital Course: Patient attended groups, had 1:1 meetings with his counselor, was adherent to his treatment plan and his medication regimen. - Medication Discharge Medications: Ambulatory Orders Aspirin [ASA -] 81 mg PO DAILY 08/15/19 Atorvastatin Ca [Lipitor] 80 mg PO HS 08/15/19 Buprenorphine/Naloxone [Suboxone 8Mg/2Mg Sl Film -] 1 each SL TID 08/15/19 Fluoxetine HCl [Prozac -] 10 mg PO DAILY 08/15/19 Gabapentin [Neurontin -] 100 mg PO BID 08/15/19 Glipizide [Glipizide ER] 5 mg PO DAILY 08/15/19 Insulin Glargine,Hum.rec.anlog [Basaglar Kwikpen U-100] 40 unit SQ DAILY Insulin NPH [Novolin N Vial -] 20 units SQ TID 08/15/19 Metformin HCl [Glucophage] 1,000 mg PO DAILY 08/15/19 Aripiprazole [Abilify -] 5 mg PO DAILY #30 tablet 08/18/19 Aripiprazole [Abilify -] 5 mg PO DAILY #30 tablet 08/26/19 Fluoxetine HCl [Prozac -] 10 mg PO DAILY #30 capsule 08/26/19 - Discharge Instructions Diet, activity, other medical instructions: Diet: as tolerated Activity: as tolerated Other medical instructions: Please follow up with aftercare referral and make an appointment with your PCP within 2 weeks. - Diagnosis (1) Alcohol dependence Current Visit: Yes Status: Acute (2) Cocaine dependence Current Visit: Yes Status: Acute (3) Cannabis use disorder, mild, abuse Current Visit: No Status: Chronic - Follow-up Referral Minutes to complete discharge: 20 - AMA Did Patient Leave Against Medical Advice: No
[2019-08-26] MEDS: FLUoxetine HCL 10 MG CAPSULE (FP) PO SCH (09:40)
[2019-08-26] MEDS: ASPIRIN 81 MG CHEWABLE TABLETS PO SCH (09:40)
[2019-08-26] MEDS: PRENATAL VITAMINS W/ FOLIC ACID TABLET (FP) PO SCH (09:40)
[2019-08-26] MEDS: ARIPiprazole 5 MG TABLET (FP) PO SCH (09:40)
[2019-08-26] MEDS: BUPRENORPHINE/NALOXONE 8 MG/2 MG FILM PACKET SL SCH (09:40)
[2019-08-26] MEDS: METHYL SALICYLATE/MENTHOL OINT 30 GM TUBE TP SCH ×2 (09:41→21:17)
--- NOTE | 2019-08-26 12:14 | PN ---
[facility] Progress Note Note: Patient is scheduled for discharge tomorrow. Scripts for 30 days supply of medications(Abilify 5 mg/day, Prozac 10 mg/day) will be electronically transmitted to [facility] at [address] [place] [address]
[2019-08-26] MEDS: INSULIN (LEVEMIR) 100 UNITS/ML UNITS SQ SCH (21:16)
[2019-08-26] MEDS: THIAMINE HCL 100 MG TABLET (FP) PO SCH (21:16)
[2019-08-26] MEDS: ATORVASTATIN CA 80 MG TABLET (FP) PO SCH (21:17)
[2019-08-27] MEDS ORDERED: INSULIN (NOVOLOG) ASPART 100 UNITS/ML 10ML VIAL ONE (06:23)
[2019-08-27 06:47] VITALS: BP 109/65; PULSE 73; TEMP 98.1
[2019-08-27] MEDS: metFORMIN HCL 500 MG TABLET (FP) PO SCH (06:47)
[2019-08-27] MEDS: glipiZIDE-XL 5 MG TAB.ER.24 PO SCH (06:47)
[2019-08-27] MEDS: INSULIN SLIDING SCALE (NOVOLOG) 1 VIAL SQ SCH (06:47)
[2019-08-27] MEDS: PRENATAL VITAMINS W/ FOLIC ACID TABLET (FP) PO SCH (09:03)
[2019-08-27] MEDS: ARIPiprazole 5 MG TABLET (FP) PO SCH (09:03)
[2019-08-27] MEDS: METHYL SALICYLATE/MENTHOL OINT 30 GM TUBE TP SCH (09:03)
[2019-08-27] MEDS: ASPIRIN 81 MG CHEWABLE TABLETS PO SCH (09:03)
[2019-08-27] MEDS: FLUoxetine HCL 10 MG CAPSULE (FP) PO SCH (09:03)
[2019-08-27] MEDS: BUPRENORPHINE/NALOXONE 8 MG/2 MG FILM PACKET SL SCH (09:04)
== END 2019-08-27 09:40 | disposition home or self-care (01) | DRG 772 ==
LOC: YASAS 15:10 → Y3W 15:11
PROVIDERS: ADMIT Neuromusculoskeletal Medicine & OMM; ATTEND Neuromusculoskeletal Medicine & OMM
PROC: HZ42ZZZ Group Counseling for Substance Abuse Treatment, Cognitive-Behavioral (ICD-10-PCS; principal; 2019-08-20)
DX: F10.20 Alcohol dependence, uncomplicated (principal); F11.20 Opioid dependence, uncomplicated; F14.20 Cocaine dependence, uncomplicated; F12.10 Cannabis abuse, uncomplicated; F17.210 Nicotine dependence, cigarettes, uncomplicated; F25.9 Schizoaffective disorder, unspecified; F19.280 Other psychoactive substance dependence with psychoactive substance-induced anxiety disorder; F19.282 Other psychoactive substance dependence with psychoactive substance-induced sleep disorder; Z62.810 Personal history of physical and sexual abuse in childhood; Z79.84 Long term (current) use of oral hypoglycemic drugs
CPT/HCPCS: 71045-TC-FY; 82962

== ENCOUNTER 2022-05-08 09:44 | Inpatient (IN) | payer OTHER ==
[2022-05-08 10:18] VITALS: BMI 27.4
[2022-05-08] MEDS ORDERED: ACETAMINOPHEN 325 MG TABLET (FP) PO PRN (11:30)
[2022-05-08] MEDS ORDERED: NICOTINE 10 MG CARTRIDGE (INHALER) IH PRN (11:30)
[2022-05-08] MEDS ORDERED: LOPERAMIDE HCL 2 MG CAPSULE PO PRN (11:30)
[2022-05-08] MEDS ORDERED: MAG HYDROX/AL HYDROX/SIMETH 30 ML UNIT-DOSE CUP PO PRN (11:30)
[2022-05-08] MEDS ORDERED: P-EPHED 60MG/TRIPROLIDI 2.5MG TABLET PO PRN (11:30)
[2022-05-08] MEDS ORDERED: guaiFENesin 200 MG/10 ML 10 ML UNIT-DOSE CUPS PO PRN (11:30)
[2022-05-08] MEDS ORDERED: MAGNESIUM HYDROX 2400MG/30ML ORAL SUSPENSION 30 ML CUP PO PRN (11:30)
[2022-05-08] MEDS ORDERED: MAGNESIUM CITRATE 300 ML BOTTLE PO PRN (11:30)
[2022-05-08 15:10] LABS: HEMATOCRIT 41.2 % (35.4-49); HEMOGLOBIN 13.8 GM/dL (11.7-16.9); MCH 30.1 pg (25.7-33.7); MCHC 33.5 g/dl (32.0-35.9); MEAN CELL VOLUME 89.9 fl (80-96); MEAN PLT VOLUME 8.8 fl (7.5-11.1); PLATELET COUNT 218 10^3/uL (134-434); RBC 4.58 M/mm3 (4.00-5.60); RDW 13.8 % (11.9-15.9); WHITE BLOOD COUNT 9.3 K/mm3 (4.0-10.0)
[2022-05-08 15:31] LABS: ALBUMIN 3.4 g/dl (3.4-5.0); BLOOD UREA NITROGEN 15.4 mg/dL (7-18); CALCIUM 9.1 mg/dL (8.5-10.1)
[2022-05-08 15:34] LABS: CREATININE 1.2 mg/dL (0.55-1.3)
[2022-05-08 15:36] LABS: BILIRUBIN,TOTAL 0.5 mg/dL (0.2-1); TOT PROT 6.9 g/dl (6.4-8.2)
[2022-05-08 15:58] LABS: SYPHILIS W/ RPR CONF NON-REACTIVE (NONREACTIVE)
[2022-05-08] MEDS: hydrOXYzine PAMOATE 25 MG CAPSULE (FP) PO SCH ×3 (21:07→21:08)
[2022-05-08] MEDS: THIAMINE HCL 100 MG TABLET (FP) PO SCH (21:08)
[2022-05-08] MEDS: MELATONIN 5 MG TABLETS PO SCH (21:08)
[2022-05-09] MEDS: hydrOXYzine PAMOATE 25 MG CAPSULE (FP) PO SCH ×3 (06:40→15:03)
[2022-05-09] MEDS: NICOTINE 7 MG/24 HOURS TOPICAL PATCH TD SCH (10:08)
[2022-05-09] MEDS: metFORMIN HCL 500 MG TABLET (FP) PO SCH (10:08)
[2022-05-09] MEDS: PRENATAL VITAMINS W/ FOLIC ACID TABLET (FP) PO SCH (10:08)
[2022-05-09] MEDS: ASPIRIN 81 MG CHEWABLE TABLETS PO SCH (10:08)
[2022-05-09 10:53] LABS: EPI CELLS 4 /uL (0-25.1); HYALINE CASTS 0 /uL (0-3.1); PH,URINE 5.5 (5.0-8.0); URINE APPEARANCE CLEAR; URINE BACTERIA 5 /uL (0-1359); URINE BILIRUBIN NEGATIVE (NEGATIVE); URINE COLOR YELLOW; URINE GLUCOSE (UA) NEGATIVE (NEGATIVE); URINE KETONE NEGATIVE (NEGATIVE); URINE LEUK ESTERASE NEGATIVE (NEGATIVE); URINE NITRITE NEGATIVE (NEGATIVE); URINE PROTEIN 1+ (NEGATIVE); URINE RBC 7 /uL (0-23.9); URINE UROBILINOGEN 0.2 mg/dL (0.2-1.0); URINE WBC 4 /uL (0-25.8)
[2022-05-09] MEDS: ARIPiprazole 15 MG TABLET PO SCH (12:11)
[2022-05-09] MEDS: INSULIN SLIDING SCALE (NOVOLOG) 1 VIAL SQ SCH ×3 (12:18→21:30)
[2022-05-09] MEDS: glipiZIDE-XL 5 MG TAB.ER.24 PO SCH (15:18)
[2022-05-09] MEDS: MELATONIN 5 MG TABLETS PO SCH (21:28)
[2022-05-09] MEDS: MIRTAZAPINE 15 MG TABLET (FP) PO SCH (21:29)
[2022-05-09] MEDS: THIAMINE HCL 100 MG TABLET (FP) PO SCH (21:29)
[2022-05-10] MEDS: metFORMIN HCL 500 MG TABLET (FP) PO SCH (06:20)
[2022-05-10] MEDS: hydrOXYzine PAMOATE 25 MG CAPSULE (FP) PO PRN (06:20)
[2022-05-10] MEDS: INSULIN SLIDING SCALE (NOVOLOG) 1 VIAL SQ SCH ×4 (06:48→21:05)
[2022-05-10] MEDS: PRENATAL VITAMINS W/ FOLIC ACID TABLET (FP) PO SCH (09:48)
[2022-05-10] MEDS: ARIPiprazole 15 MG TABLET PO SCH (09:48)
[2022-05-10] MEDS: ASPIRIN 81 MG CHEWABLE TABLETS PO SCH (09:48)
[2022-05-10] MEDS: NICOTINE 7 MG/24 HOURS TOPICAL PATCH TD SCH (09:48)
[2022-05-10] MEDS: glipiZIDE-XL 5 MG TAB.ER.24 PO SCH (11:07)
[2022-05-10] MEDS: MIRTAZAPINE 15 MG TABLET (FP) PO SCH (21:04)
[2022-05-10] MEDS: MELATONIN 5 MG TABLETS PO SCH (21:04)
[2022-05-10] MEDS: THIAMINE HCL 100 MG TABLET (FP) PO SCH (21:05)
[2022-05-11] MEDS: hydrOXYzine PAMOATE 25 MG CAPSULE (FP) PO PRN (06:33)
[2022-05-11] MEDS: metFORMIN HCL 500 MG TABLET (FP) PO SCH (06:33)
[2022-05-11] MEDS: INSULIN SLIDING SCALE (NOVOLOG) 1 VIAL SQ SCH ×4 (06:35→21:18)
[2022-05-11] MEDS: glipiZIDE-XL 5 MG TAB.ER.24 PO SCH (10:03)
[2022-05-11] MEDS: NICOTINE 7 MG/24 HOURS TOPICAL PATCH TD SCH (10:03)
[2022-05-11] MEDS: PRENATAL VITAMINS W/ FOLIC ACID TABLET (FP) PO SCH (10:03)
[2022-05-11] MEDS: ASPIRIN 81 MG CHEWABLE TABLETS PO SCH (10:03)
[2022-05-11] MEDS: ARIPiprazole 15 MG TABLET PO SCH (10:03)
[2022-05-11] MEDS: THIAMINE HCL 100 MG TABLET (FP) PO SCH (21:19)
[2022-05-11] MEDS: MELATONIN 5 MG TABLETS PO SCH (21:19)
[2022-05-11] MEDS: MIRTAZAPINE 15 MG TABLET (FP) PO SCH (21:19)
[2022-05-12] MEDS: metFORMIN HCL 500 MG TABLET (FP) PO SCH (06:14)
[2022-05-12] MEDS: INSULIN SLIDING SCALE (NOVOLOG) 1 VIAL SQ SCH ×4 (06:15→21:33)
[2022-05-12] MEDS: ASPIRIN 81 MG CHEWABLE TABLETS PO SCH (09:23)
[2022-05-12] MEDS: ARIPiprazole 15 MG TABLET PO SCH (09:23)
[2022-05-12] MEDS: PRENATAL VITAMINS W/ FOLIC ACID TABLET (FP) PO SCH (09:24)
[2022-05-12] MEDS: NICOTINE 7 MG/24 HOURS TOPICAL PATCH TD SCH (09:24)
[2022-05-12] MEDS: glipiZIDE-XL 5 MG TAB.ER.24 PO SCH (11:00)
[2022-05-12] MEDS: MELATONIN 5 MG TABLETS PO SCH (21:31)
[2022-05-12] MEDS: MIRTAZAPINE 15 MG TABLET (FP) PO SCH (21:31)
[2022-05-12] MEDS: THIAMINE HCL 100 MG TABLET (FP) PO SCH (21:31)
[2022-05-13] MEDS: glipiZIDE-XL 5 MG TAB.ER.24 PO SCH (06:09)
[2022-05-13] MEDS: metFORMIN HCL 500 MG TABLET (FP) PO SCH (06:10)
[2022-05-13] MEDS: INSULIN SLIDING SCALE (NOVOLOG) 1 VIAL SQ SCH ×4 (06:11→21:03)
[2022-05-13] MEDS: PRENATAL VITAMINS W/ FOLIC ACID TABLET (FP) PO SCH (09:51)
[2022-05-13] MEDS: NICOTINE 7 MG/24 HOURS TOPICAL PATCH TD SCH (09:51)
[2022-05-13] MEDS: ASPIRIN 81 MG CHEWABLE TABLETS PO SCH (09:51)
[2022-05-13] MEDS: ARIPiprazole 15 MG TABLET PO SCH (09:51)
[2022-05-13] MEDS ORDERED: INSULIN SLIDING SCALE (NOVOLOG) 1 VIAL SQ ONE ×2 (16:59→21:04)
[2022-05-13] MEDS: MELATONIN 5 MG TABLETS PO SCH (21:02)
[2022-05-13] MEDS: MIRTAZAPINE 15 MG TABLET (FP) PO SCH (21:03)
[2022-05-13] MEDS: THIAMINE HCL 100 MG TABLET (FP) PO SCH (21:03)
[2022-05-14] MEDS: metFORMIN HCL 500 MG TABLET (FP) PO SCH (06:20)
[2022-05-14] MEDS: INSULIN SLIDING SCALE (NOVOLOG) 1 VIAL SQ SCH ×4 (06:21→21:09)
[2022-05-14] MEDS: glipiZIDE-XL 5 MG TAB.ER.24 PO SCH (06:21)
[2022-05-14] MEDS: ASPIRIN 81 MG CHEWABLE TABLETS PO SCH (09:52)
[2022-05-14] MEDS: PRENATAL VITAMINS W/ FOLIC ACID TABLET (FP) PO SCH (09:52)
[2022-05-14] MEDS: NICOTINE 7 MG/24 HOURS TOPICAL PATCH TD SCH (09:52)
[2022-05-14] MEDS: ARIPiprazole 15 MG TABLET PO SCH (09:52)
[2022-05-14] MEDS: MELATONIN 5 MG TABLETS PO SCH (21:09)
[2022-05-14] MEDS: THIAMINE HCL 100 MG TABLET (FP) PO SCH (21:09)
[2022-05-14] MEDS: MIRTAZAPINE 15 MG TABLET (FP) PO SCH (21:09)
[2022-05-15] MEDS: INSULIN SLIDING SCALE (NOVOLOG) 1 VIAL SQ SCH ×4 (06:17→21:06)
[2022-05-15] MEDS: glipiZIDE-XL 5 MG TAB.ER.24 PO SCH (06:18)
[2022-05-15] MEDS: metFORMIN HCL 500 MG TABLET (FP) PO SCH (06:18)
[2022-05-15] MEDS: PRENATAL VITAMINS W/ FOLIC ACID TABLET (FP) PO SCH (10:20)
[2022-05-15] MEDS: NICOTINE 7 MG/24 HOURS TOPICAL PATCH TD SCH (10:20)
[2022-05-15] MEDS: ASPIRIN 81 MG CHEWABLE TABLETS PO SCH (10:20)
[2022-05-15] MEDS: ARIPiprazole 15 MG TABLET PO SCH (10:21)
[2022-05-15] MEDS ORDERED: INSULIN SLIDING SCALE (NOVOLOG) 1 VIAL SQ ONE ×2 (16:43→21:05)
[2022-05-15] MEDS: MIRTAZAPINE 15 MG TABLET (FP) PO SCH (21:07)
[2022-05-15] MEDS: MELATONIN 5 MG TABLETS PO SCH (21:07)
[2022-05-15] MEDS: THIAMINE HCL 100 MG TABLET (FP) PO SCH (21:07)
[2022-05-16] MEDS: metFORMIN HCL 500 MG TABLET (FP) PO SCH (06:42)
[2022-05-16] MEDS: glipiZIDE-XL 5 MG TAB.ER.24 PO SCH (06:42)
[2022-05-16] MEDS: INSULIN SLIDING SCALE (NOVOLOG) 1 VIAL SQ SCH ×4 (06:46→21:25)
[2022-05-16] MEDS: PRENATAL VITAMINS W/ FOLIC ACID TABLET (FP) PO SCH (10:21)
[2022-05-16] MEDS: ARIPiprazole 15 MG TABLET PO SCH (10:21)
[2022-05-16] MEDS: NICOTINE 7 MG/24 HOURS TOPICAL PATCH TD SCH (10:21)
[2022-05-16] MEDS: ASPIRIN 81 MG CHEWABLE TABLETS PO SCH (10:21)
[2022-05-16] MEDS ORDERED: INSULIN SLIDING SCALE (NOVOLOG) 1 VIAL SQ ONE ×2 (16:44→21:23)
[2022-05-16] MEDS: THIAMINE HCL 100 MG TABLET (FP) PO SCH (21:24)
[2022-05-16] MEDS: MELATONIN 5 MG TABLETS PO SCH (21:24)
[2022-05-16] MEDS: MIRTAZAPINE 15 MG TABLET (FP) PO SCH (21:24)
[2022-05-17] MEDS: metFORMIN HCL 500 MG TABLET (FP) PO SCH (06:37)
[2022-05-17] MEDS: INSULIN SLIDING SCALE (NOVOLOG) 1 VIAL SQ SCH ×4 (06:37→21:33)
[2022-05-17] MEDS: glipiZIDE-XL 5 MG TAB.ER.24 PO SCH (06:37)
[2022-05-17] MEDS: ASPIRIN 81 MG CHEWABLE TABLETS PO SCH (10:25)
[2022-05-17] MEDS: PRENATAL VITAMINS W/ FOLIC ACID TABLET (FP) PO SCH (10:25)
[2022-05-17] MEDS: ARIPiprazole 15 MG TABLET PO SCH (10:25)
[2022-05-17] MEDS: NICOTINE 7 MG/24 HOURS TOPICAL PATCH TD SCH (10:26)
[2022-05-17] MEDS: THIAMINE HCL 100 MG TABLET (FP) PO SCH (21:31)
[2022-05-17] MEDS: MIRTAZAPINE 15 MG TABLET (FP) PO SCH (21:31)
[2022-05-17] MEDS: MELATONIN 5 MG TABLETS PO SCH (21:31)
[2022-05-17] MEDS ORDERED: INSULIN SLIDING SCALE (NOVOLOG) 1 VIAL SQ ONE (21:33)
[2022-05-18] MEDS: metFORMIN HCL 500 MG TABLET (FP) PO SCH (06:29)
[2022-05-18] MEDS: hydrOXYzine PAMOATE 25 MG CAPSULE (FP) PO PRN (06:29)
[2022-05-18] MEDS: INSULIN SLIDING SCALE (NOVOLOG) 1 VIAL SQ SCH ×4 (06:30→21:04)
[2022-05-18] MEDS: glipiZIDE-XL 5 MG TAB.ER.24 PO SCH (06:37)
[2022-05-18] MEDS: ARIPiprazole 15 MG TABLET PO SCH (11:13)
[2022-05-18] MEDS: ASPIRIN 81 MG CHEWABLE TABLETS PO SCH (11:13)
[2022-05-18] MEDS: PRENATAL VITAMINS W/ FOLIC ACID TABLET (FP) PO SCH (11:15)
[2022-05-18] MEDS: NICOTINE 7 MG/24 HOURS TOPICAL PATCH TD SCH (11:15)
[2022-05-18] MEDS: IBUPROFEN 400 MG TABLET (FP) PO PRN (19:01)
[2022-05-18] MEDS: MIRTAZAPINE 15 MG TABLET (FP) PO SCH (21:03)
[2022-05-18] MEDS: MELATONIN 5 MG TABLETS PO SCH (21:04)
[2022-05-18] MEDS: THIAMINE HCL 100 MG TABLET (FP) PO SCH (21:04)
[2022-05-19] MEDS: glipiZIDE-XL 5 MG TAB.ER.24 PO SCH (06:42)
[2022-05-19] MEDS: metFORMIN HCL 500 MG TABLET (FP) PO SCH (06:43)
[2022-05-19] MEDS: INSULIN SLIDING SCALE (NOVOLOG) 1 VIAL SQ SCH ×4 (06:44→21:18)
[2022-05-19] MEDS: ASPIRIN 81 MG CHEWABLE TABLETS PO SCH (10:37)
[2022-05-19] MEDS: ARIPiprazole 15 MG TABLET PO SCH (10:37)
[2022-05-19] MEDS: NICOTINE 7 MG/24 HOURS TOPICAL PATCH TD SCH (10:38)
[2022-05-19] MEDS: PRENATAL VITAMINS W/ FOLIC ACID TABLET (FP) PO SCH (10:38)
[2022-05-19] MEDS: IBUPROFEN 400 MG TABLET (FP) PO PRN (16:54)
[2022-05-19] MEDS: hydrOXYzine PAMOATE 25 MG CAPSULE (FP) PO PRN (21:16)
[2022-05-19] MEDS: MELATONIN 5 MG TABLETS PO SCH (21:16)
[2022-05-19] MEDS: THIAMINE HCL 100 MG TABLET (FP) PO SCH (21:16)
[2022-05-19] MEDS: MIRTAZAPINE 15 MG TABLET (FP) PO SCH (21:16)
[2022-05-20] MEDS: INSULIN SLIDING SCALE (NOVOLOG) 1 VIAL SQ SCH ×4 (06:24→21:13)
[2022-05-20] MEDS: glipiZIDE-XL 5 MG TAB.ER.24 PO SCH (06:24)
[2022-05-20] MEDS: metFORMIN HCL 500 MG TABLET (FP) PO SCH (06:24)
[2022-05-20] MEDS: ASPIRIN 81 MG CHEWABLE TABLETS PO SCH (10:46)
[2022-05-20] MEDS: PRENATAL VITAMINS W/ FOLIC ACID TABLET (FP) PO SCH (10:46)
[2022-05-20] MEDS: ARIPiprazole 15 MG TABLET PO SCH (10:46)
[2022-05-20] MEDS: NICOTINE 7 MG/24 HOURS TOPICAL PATCH TD SCH (10:47)
[2022-05-20] MEDS ORDERED: INSULIN SLIDING SCALE (NOVOLOG) 1 VIAL SQ ONE (16:33)
[2022-05-20] MEDS: IBUPROFEN 400 MG TABLET (FP) PO PRN (18:49)
[2022-05-20] MEDS: MIRTAZAPINE 15 MG TABLET (FP) PO SCH (21:12)
[2022-05-20] MEDS: MELATONIN 5 MG TABLETS PO SCH (21:12)
[2022-05-20] MEDS: THIAMINE HCL 100 MG TABLET (FP) PO SCH (21:12)
[2022-05-20] MEDS: hydrOXYzine PAMOATE 25 MG CAPSULE (FP) PO PRN (21:13)
[2022-05-21] MEDS: metFORMIN HCL 500 MG TABLET (FP) PO SCH (06:41)
[2022-05-21] MEDS: INSULIN SLIDING SCALE (NOVOLOG) 1 VIAL SQ SCH ×4 (06:41→22:01)
[2022-05-21] MEDS: glipiZIDE-XL 5 MG TAB.ER.24 PO SCH (06:41)
[2022-05-21] MEDS: IBUPROFEN 400 MG TABLET (FP) PO PRN ×2 (06:42→21:16)
[2022-05-21] MEDS: ASPIRIN 81 MG CHEWABLE TABLETS PO SCH (09:56)
[2022-05-21] MEDS: ARIPiprazole 15 MG TABLET PO SCH (09:56)
[2022-05-21] MEDS: PRENATAL VITAMINS W/ FOLIC ACID TABLET (FP) PO SCH (09:56)
[2022-05-21] MEDS: NICOTINE 7 MG/24 HOURS TOPICAL PATCH TD SCH (09:57)
[2022-05-21] MEDS: MELATONIN 5 MG TABLETS PO SCH (21:16)
[2022-05-21] MEDS: MIRTAZAPINE 15 MG TABLET (FP) PO SCH (21:16)
[2022-05-21] MEDS: THIAMINE HCL 100 MG TABLET (FP) PO SCH (21:16)
[2022-05-21] MEDS: hydrOXYzine PAMOATE 25 MG CAPSULE (FP) PO PRN (21:17)
[2022-05-21] MEDS ORDERED: INSULIN SLIDING SCALE (NOVOLOG) 1 VIAL SQ ONE (21:59)
[2022-05-22] MEDS: glipiZIDE-XL 5 MG TAB.ER.24 PO SCH (06:21)
[2022-05-22] MEDS: hydrOXYzine PAMOATE 25 MG CAPSULE (FP) PO PRN (06:21)
[2022-05-22] MEDS: metFORMIN HCL 500 MG TABLET (FP) PO SCH (06:21)
[2022-05-22] MEDS: INSULIN SLIDING SCALE (NOVOLOG) 1 VIAL SQ SCH (06:26)
[2022-05-22 07:53] VITALS: BP 157/97; PULSE 80; RESP 16; TEMP 97.5
[2022-05-22] MEDS: ARIPiprazole 15 MG TABLET PO SCH (09:40)
[2022-05-22] MEDS: PRENATAL VITAMINS W/ FOLIC ACID TABLET (FP) PO SCH (09:40)
[2022-05-22] MEDS: ASPIRIN 81 MG CHEWABLE TABLETS PO SCH (09:40)
[2022-05-22] MEDS: NICOTINE 7 MG/24 HOURS TOPICAL PATCH TD SCH (09:40)
== END 2022-05-22 09:50 | disposition home or self-care (01) | DRG 772 ==
LOC: YASAS 09:44 → Y3W 12:32
PROVIDERS: ADMIT Allergy & Immunology; ATTEND Psychiatry & Neurology Pain Medicine
PROC: HZ42ZZZ Group Counseling for Substance Abuse Treatment, Cognitive-Behavioral (ICD-10-PCS; principal; 2022-05-08)
DX: F14.20 Cocaine dependence, uncomplicated (principal); F12.20 Cannabis dependence, uncomplicated; F17.210 Nicotine dependence, cigarettes, uncomplicated; F19.280 Other psychoactive substance dependence with psychoactive substance-induced anxiety disorder; F19.282 Other psychoactive substance dependence with psychoactive substance-induced sleep disorder; F25.9 Schizoaffective disorder, unspecified; F20.0 Paranoid schizophrenia; E78.5 Hyperlipidemia, unspecified; E11.9 Type 2 diabetes mellitus without complications; Z79.4 Long term (current) use of insulin; M54.50 Low back pain, unspecified; G89.29 Other chronic pain; R76.11 Nonspecific reaction to tuberculin skin test without active tuberculosis
CPT/HCPCS: 36415; 71046-TC-FY; 80053; 81003; 82962; 85027; 86780; 86803; 87522; 87811; C9803-CS; U0003; U0005